=== PATIENT | male | born 1965 | race Hispanic/Latino ===

== ENCOUNTER 2018-08-07 04:48 | Observation (INO) | payer OTHER ==
[2018-08-07 05:23] LABS: #Eosinphils 0.1 thou/uL (0.0-0.7); #Lymphocytes 1.4 thou/uL (1.20-3.40); #Monocytes 0.5 thou/uL (0.11-0.59); #Neutrophils 6.8 thou/uL (1.40-6.50); %Basophils 0.5 % (0.0-1.0); %Eosinophils 0.7 % (0.0-10.0); %Lymphocytes 16.4 % (21.0-51.0); %Monocytes 5.9 % (0.0-10.0); %Neutrophils 76.6 % (42.0-75.0); Hemoglobin 17.3 g/dL (14.0-18.0); Mean Corpuscular HGB CONC 34.5 g/dL (32.0-36.0); Mean Corpuscular Hemoglobin 31.7 pg (27.0-31.0); Mean Corpuscular Volume 91.8 fL (78.0-98.0); Mean Platelet Volume 8.3 fL (7.4-10.4); Platelet Count 199 thou/uL (130-400); RBC Distribution Width 11.8 % (11.5-14.5); Red Blood Cell (RBC) Count 5.47 mill/uL (4.70-6.10); White Blood Cell (WBC) Count 8.8 thou/uL (4.8-10.8)
[2018-08-07 05:41] LABS: ALT (SGPT) 31 U/L (8-55); AST (SGOT) 21 U/L (5-34); Alkaline Phosphatase 114 U/L (40-150); Anion Gap 11 mmol/L (10-20); BUN (Urea Nitrogen) 11 mg/dL (8.4-25.7); Bilirubin, Total 0.5 mg/dL (0.2-1.2); Calc. Creatinine Clearance 0 mL/min (70-130); Calcium 9.1 mg/dL (7.8-10.44); Carbon Dioxide 23 mmol/L (22-29); Chloride 107 mmol/L (98-107); Estimated GFR-MDRD Greater than 90; Globulin 3.1 g/dL (2.4-3.5); Glucose 138 mg/dL (70-105); Potassium 4.2 mmol/L (3.5-5.1); Protein, Total 7.1 g/dL (6.0-8.3); Sodium 137 mmol/L (136-145)
--- NOTE | 2018-08-07 06:43 | PDOC.FPRHP ---
- History of Present Illness Chief Complaint: syncope History of Present Illness: Mr. Finn presents from alf for an episode of syncope He reports he was urinating this morning and upon finishing he became dizzy/SOB and passed out, the next thing he remembers is being on the floor with people standing around him. He denies any chest pain, palpitations, recent change in bowel movements, fever/chills, numbness/tingling, or focal weakness. When he had an DE in the past he reported chest pain and shortness of breath. He reports recently he has had to strain more to urinate. ED Course: ASA CBC, CMP, trop, CXR, CT brain - History PMHx: CAD, HTN, psoriasis PSHx: tympanic membrane graph, stent placement in 2016 FHx: DM Social: in alf - Review of Systems General: denies: fever/chills, weight/appetite/sleep changes Eyes: denies: eye pain, vision changes ENT: denies: nasal congestion, rhinorrhea Respiratory: reports: shortness of breath. denies: cough, congestion, exercise intolerance Cardiovascular: denies: chest pain (d), palpitation, edema Gastrointestinal: reports: nausea. denies: diarrhea, constipation Genitourinary: denies: incontinence, dysuria, polyuria Skin: denies: rashes Musculoskeletal: denies: pain, tenderness Neurological: reports: syncope. denies: numbness - Vital signs BP: 141/87 HR: 75 RR: 16 Tmax: 98.3 Pox: 98% on RA Wt: 88.45kg - Physical Exam Constitutional: NAD HEENT: EOMI, grossly normal vision, grossly normal hearing, MMM Neck: supple, trachea midline Chest: no-tender to palpation, no lesions Heart: RRR, normal S1/S2, no murmurs/rubs/gallops, pulses present, no edema Lungs: CTAB, no respiratory distress, good air movement Abdomen: soft, non-tender Musculoskeletal: normal structure, normal tone Neurological: no focal deficit, CN II-XII intact Skin: no rash/lesions, good turgor Heme/Lymphatic: no unusual bruising or bleeding Psychiatric: normal mood and affect FMR H&P: Results - Labs Result Diagrams: 08/07/18 05:06 08/07/18 05:06 Lab results: WBC 8.8 thou/uL (4.8-10.8) 08/07/18 05:06 Hgb 17.3 g/dL (14.0-18.0) 08/07/18 05:06 Hct 50.2 % (42.0-52.0) 08/07/18 05:06 MCV 91.8 fL (78.0-98.0) 08/07/18 05:06 Plt Count 199 thou/uL (130-400) 08/07/18 05:06 Neutrophils % 76.6 % (42.0-75.0) H 08/07/18 05:06 Sodium 137 mmol/L (136-145) 08/07/18 05:06 Potassium 4.2 mmol/L (3.5-5.1) 08/07/18 05:06 Chloride 107 mmol/L (98-107) 08/07/18 05:06 Carbon Dioxide 23 mmol/L (22-29) 08/07/18 05:06 BUN 11 mg/dL (8.4-25.7) 08/07/18 05:06 Creatinine 0.77 mg/dL (0.7-1.3) 08/07/18 05:06 Glucose 138 mg/dL (70-105) H 08/07/18 05:06 Calcium 9.1 mg/dL (7.8-10.44) 08/07/18 05:06 Total Bilirubin 0.5 mg/dL (0.2-1.2) 08/07/18 05:06 AST 21 U/L (5-34) 08/07/18 05:06 ALT 31 U/L (8-55) 08/07/18 05:06 Alkaline Phosphatase 114 U/L (40-150) 08/07/18 05:06 Serum Total Protein 7.1 g/dL (6.0-8.3) 08/07/18 05:06 Albumin 4.0 g/dL (3.5-5.0) 08/07/18 05:06 FMR H&P: A/P - Problem List (1) Micturition syncope Current Visit: Yes Status: Acute Code(s): R55 - SYNCOPE AND COLLAPSE (2) Coronary artery disease Current Visit: Yes Status: Acute Code(s): I25.10 - ATHSCL HEART DISEASE OF [place] CORONARY ARTERY W/O ANG PCTRS (3) HTN (hypertension) Current Visit: Yes Status: Acute Code(s): I10 - ESSENTIAL (PRIMARY) HYPERTENSION (4) Psoriasis Current Visit: Yes Status: Acute Code(s): L40.9 - PSORIASIS, UNSPECIFIED - Plan micturition syncope - most likely diagnosis based on hx, neg trops, no chest pain - orthostatics, echo ordered - monitor on telemetry, vitals q4hr CAD - stent placement in 2016 - continue ASA HTN - continue home meds Psoriasis - continue home meds code: full ppx: lovenox Disposition/LOS: observe on telemetry, possible DC later FMR H&P: Upper Level - Pertinent history Pt is a 53 y/o M with CAD s/p stent in 2016 presenting after syncopal episode and fall. Had just finished urinating. Associated SOB and LOC. Did have a laceration on his head from the fall. This has not occurred in the past. He states he feels well now and denies chest pain, palpitations, dysuria, straining to urinate, constipationor stool changes, fevers chills, vision problems. Medications: Metoprolol 25 bid Prednisone 10mg daily Atorvastatin 10mg Plavix 75 daily - Plan Date/Time: 08/07/18 3984 I, Jossue Watson, have evaluated this patient and agree with findings/plan as outlined by internet application developer resident. Pertinent changes/additions are listed here. 1. Syncope Possibly orthostatic vs arrhythmia vs vasovagal and unlikely ACS. Most likely micturition response. Neg troponins and EKG. Will monitor on Tele, no arrhythmias observed. Order ECHO and orthostatic v/s. Consider stress test, but will hold for now. Will also give IVF as pt was mildy dehydrated. 2. Head Trauma 2/2 fall. Does have repaired laceration and is of nonrmal mentation. Continue to monitor neurological and metal status. 3. CAD S/p stents in 2016 and on Plavix. Did describe SOB, however no chest pain and negative troponins and EKG suggest no acute process. Continue home medications 4. Psoriasis - Continue home prednisone dose of 10mg and triamcinolone. 5. HTN continue Metoprolol Attending Addendum - Attending Addendum Date/Time: 08/07/18 [id number] I personally evaluated the patient and discussed the management with the team. I agree with and repeated the History, Examination, Assessment and Plan documented above with any addition or exceptions noted below. The patient tells me he had shortness of breath and palpitations prior to his syncope. His exam is unremarkable. Good hemostasis at site of fredo. Plan for stress and TTE.
--- NOTE | 2018-08-07 07:53 | CT ---
FINAL REPORT HEAD CT WITHOUT CONTRAST: DATE: 08/07/2018. COMPARISON: None. HISTORY: Injury, trauma, pain. FINDINGS: I agree with the preliminary [facility] report. The imaged paranasal sinuses and mastoid air cells are well aerated. There is scalp swelling near the vertex posteriorly on the left with associated subcutaneo us gas consistent with scalp laceration. No associated fracture. No intracranial hemorrhage, midlin e shift, or mass effect. IMPRESSION: Scalp injury near the vertex on the left posteriorly. No associated fracture or intracranial hemorrh age. POS: [facility]
--- NOTE | 2018-08-07 08:33 | CT ---
PRELIMINARY REPORT/[facility]/EMERGENT[facility] AFTER-HOURS PROCEDURE CT Head Without Contrast EXAM DATE/TIME: 08/07/2018 5:17 AM CLINICAL HISTORY: 53 years old, male; Injury or trauma; Fall; Initial encounter; Blunt trauma (contusions or hematomas) and laceration; With loss of consciousness; Loss of consciousness for 30 minutes or less; Without re sidual foreign body; Forehead; Injury date: 08/06/18; Patient HX: Er4, no prev, S/P fall, m53 presents to ed via ems with C/O fall while in longterm. Per ems PT fell and hit back of head, +loc, and n ow has lac and has been complaining of nausea and vomiting. PT notes that he got up to go to the bath room this am, got dizzy, felt pressure in his chest, and then had a syncopal event. PT also notes stent placed in november 2015 TECHNIQUE: Axial computed tomography images of the head/brain without contrast. COMPARISON: No relevant prior studies available. FINDINGS: Brain: Normal. No hemorrhage. No significant white matter disease. No edema. Ventricles: Normal. No ventriculomegaly. Bones/joints: The underlying calvarium is intact. Sinuses: Normal as visualized. No acute sinusitis. Mastoid air cells: Normal as visualized. No mastoid effusion. Soft tissues: There is moderate soft tissue swelling over the left parietal bone. IMPRESSION: There is moderate soft tissue swelling over the left parietal bone but no evidence of acute intracran ial pathology. Thank you for allowing us to participate in the care of your patient. Dictated and Authenticated by: Erin Tucker MD 08/07/2018 5:49 AM Central Time ([place] & [place]) FINAL REPORT CERVICAL SPINE CT WITHOUT CONTRAST: DATE: 08/07/2018. COMPARISON: None. HISTORY: Trauma, injury, pain. FINDINGS: I agree with the preliminary [facility] report. There is polypoid mucosal thickening involving the alveolar recess of bilateral maxillary sinuses, le ft greater than right. C1 ring is intact. Occipital condyles, dense, and C1-2 articulation demonstrate no acute findings. There is moderate de generative change at the atlantoaxial interspace. Craniocervical and cervicothoracic junctions are i ntact. There is no anterolisthesis or retrolisthesis noted within the cervical spine. There is osseous fusion at the C5-6 intervertebral disk space with posterior osteophyte. There is os teophyte encroachment on the left neural foramen at C6-7. No prevertebral soft tissue swelling. No acute fracture or dislocation. Prominent degenerative endplate changes are present at C6-7 and C7-T1 . No acute fracture or evidence of dislocation. Posterior osteophyte at C5-6 and C6-7 causes central canal stenosis. Imaged lung apices unremarkable . IMPRESSION: Multilevel degenerative change. No displaced fracture or dislocation. POS: [facility]
--- NOTE | 2018-08-07 08:48 | RAD ---
SINGLE VIEW OF THE CHEST: COMPARISON: None. HISTORY: Passed out on toilet and hit head. Chest pain. FINDINGS: Single view of the chest shows a normal sized cardiomediastinal silhouette. There is no evidence of c onsolidation, mass, or pleural effusion. The bones are unremarkable. IMPRESSION: No evidence of acute cardiopulmonary disease. POS: [facility]
[2018-08-07 08:58] LABS: Troponin I Less than 0.010 ng/mL (< 0.028)
[2018-08-07 09:24] VITALS: BMI 29.0
[2018-08-07] MEDS ORDERED: ADENOSINE 60 MG/20 ML VIAL ONE (09:42)
[2018-08-07] MEDS ORDERED: Ondansetron PF 4 MG/2 ML Vial IVP PRN (09:51)
[2018-08-07] MEDS ORDERED: Ondansetron ODT 4 MG TAB SL PRN (09:51)
[2018-08-07] MEDS: Acetaminophen 325 MG TAB PO PRN ×2 (14:32→20:49)
[2018-08-07 14:40] LABS: Troponin I Less than 0.010 ng/mL (< 0.028)
--- NOTE | 2018-08-07 14:48 | NM ---
MYOCARDIAL PERFUSION STUDY: 08/07/2018 HISTORY: Shortness of breath. Syncope. RADIOPHARMACEUTICAL: Technetium 99m sestamibi 31 millicuries IV at stress. Technetium 99m sestamibi 9 millicuries IV at rest. MEDICATIONS: Adenosine 17.2 mL (51.5 mg) IV. FINDINGS: No significant reversible defect is seen between the stress and rest acquisitions. Quantitative anal ysis also shows no significant reversible defect. Gated images show normal ventricular wall motion a nd wall thickening. The calculated left ventricular ejection fraction is 65%. Incidental note is ma de of elevation of the transient ischemic dilatation ratio, which is 1.3, with upper limits of normal being 1.22. IMPRESSION: 1. Normal myocardial perfusion study without evidence of a reversible defect seen to suggest ischemi a. 2. Normal left ventricular ejection fraction of 65%. 3. Elevation of the transient ischemic dilatation ratio, which is 1.3. POS: [facility]
[2018-08-07] MEDS ORDERED: PREDNISONE 10 MG PO SCH (18:45)
[2018-08-07] MEDS ORDERED: predniSONE 5 MG TAB PO SCH (20:00)
[2018-08-07] MEDS: Metoprolol Tartrate 25 MG TAB PO SCH (20:49)
[2018-08-07] MEDS ORDERED: predniSONE 20 MG TAB PO SCH (23:00)
[2018-08-08] MEDS: predniSONE 5 MG TAB PO SCH ×2 (07:47→13:19)
--- NOTE | 2018-08-08 08:33 | PDOC.FM ---
- Subjective Subjective: No acute events overnight. Pt reportsfeeling of sob and similar pre-syncope feeling similar to original episode at around 3am. Tele monitor at that time showed sinus tachycardia. Denies cp, diaphoresis, NVDC, pre-syncope and syncopal episodes. - Objective MAR Reviewed: Yes Vital Signs & Weight: Vital Signs (12 hours) Temp Pulse Resp BP BP BP BP 08/08/18 07:36 97.5 F L 70 20 128/90 135/99 H 119/74 08/08/18 02:49 97.7 F 67 14 131/80 08/07/18 23:04 98.2 F 60 16 124/93 H Pulse Ox 08/08/18 07:36 95 08/08/18 02:49 94 L 08/07/18 23:04 95 Weight Weight 91.671 kg I&O: 08/07/18 08/08/18 08/09/18 06:59 06:59 06:59 Intake Total 775 Output Total 225 Balance 550 Result Diagrams: 08/07/18 05:06 08/07/18 05:06 <Dain Fischer - Last Filed: 08/08/18 08:30> - Objective Vital Signs & Weight: Vital Signs (12 hours) Temp Pulse Resp BP BP BP BP 08/08/18 07:36 97.5 F L 70 20 128/90 135/99 H 119/74 08/08/18 02:49 97.7 F 67 14 131/80 08/07/18 23:04 98.2 F 60 16 124/93 H Pulse Ox 08/08/18 07:36 95 08/08/18 02:49 94 L 08/07/18 23:04 95 Weight Weight 91.671 kg I&O: 08/07/18 08/08/18 08/09/18 06:59 06:59 06:59 Intake Total 775 Output Total 225 Balance 550 Result Diagrams: 08/07/18 05:06 08/07/18 05:06 <Huan Gilbert - Last Filed: 08/08/18 10:49> Phys Exam - Physical Examination Constitutional: NAD HEENT: PERRLA, moist MMs, sclera anicteric Neck: no nodes, no JVD, supple Respiratory: no wheezing, no rales, no rhonchi, clear to auscultation bilateral Cardiovascular: RRR, no significant murmur, no rub Gastrointestinal: soft, non-tender, no distention, positive bowel sounds Musculoskeletal: no edema, pulses present Neurological: non-focal, moves all 4 limbs Psychiatric: normal affect Skin: no rash, cap refill <2 seconds Deviation from normal: head laceration left occipital region <Dain Fischer - Last Filed: 08/08/18 08:30> Dx/Plan (1) Micturition syncope Code(s): R55 - SYNCOPE AND COLLAPSE Status: Acute (2) Coronary artery disease Code(s): I25.10 - ATHSCL HEART DISEASE OF [place] CORONARY ARTERY W/O ANG PCTRS Status: Acute (3) HTN (hypertension) Code(s): I10 - ESSENTIAL (PRIMARY) HYPERTENSION Status: Acute (4) Psoriasis Code(s): L40.9 - PSORIASIS, UNSPECIFIED Status: Acute - Plan Plan: micturition syncope - given no events on telemetry and negative stress, remains most arevalo dx - will await read on echo - stress negative - dc to [facility] today CAD - stent placement in 2016 - continue ASA HTN - continue home meds - cont to monitor, if persistently elevated may benefit from additionally bp med control Psoriasis - continue home meds Dispo: stable, will await echo results and DC to [facility] today. No events on telemetry overnight. <Dain Fischer - Last Filed: 08/08/18 08:30> (1) Micturition syncope Code(s): R55 - SYNCOPE AND COLLAPSE Status: Acute (2) Coronary artery disease Code(s): I25.10 - ATHSCL HEART DISEASE OF [place] CORONARY ARTERY W/O ANG PCTRS Status: Acute (3) HTN (hypertension) Code(s): I10 - ESSENTIAL (PRIMARY) HYPERTENSION Status: Acute (4) Psoriasis Code(s): L40.9 - PSORIASIS, UNSPECIFIED Status: Acute <Huan Gilbert - Last Filed: 08/08/18 10:49> Attending Addendum - Attending Addendum Date/Time: 08/08/18 1048 I personally evaluated the patient and discussed the management with Dr. Fischer. I agree with and repeated the History, Examination, Assessment and Plan documented above with any addition or exceptions noted below. In light of stress results will d/w cards and see if they would want some sort of rhythm monitoring. If not then plan for dc pending TTE results. Low suspicion of seizures or other etiologies. <Huan Gilbert - Last Filed: 08/08/18 10:49>
[2018-08-08] MEDS: Metoprolol Tartrate 25 MG TAB PO SCH (08:56)
[2018-08-08] MEDS ORDERED: Amlodipine 5 MG TAB PO SCH (09:00)
[2018-08-08] MEDS ORDERED: Triamcinolone 0.1% Cream 15 GM TUBE TOP PRN (09:00)
[2018-08-08] MEDS ORDERED: Atorvastatin Calcium 10 MG TAB PO SCH (09:00)
[2018-08-08] MEDS ORDERED: Clopidogrel Bisulfate 75 MG TAB PO SCH (09:00)
[2018-08-08 12:14] VITALS: BP 117/78; TEMP 98.1
[2018-08-08] MEDS ORDERED: predniSONE 20 MG TAB PO SCH (21:00)
[2018-08-09] MEDS ORDERED: predniSONE 5 MG TAB PO SCH (07:00)
[2018-08-10] MEDS ORDERED: predniSONE 5 MG TAB PO SCH (07:00)
--- NOTE | 2018-08-10 13:28 | EKG ---
Test Reason : CP Blood Pressure : / mmHG Vent. Rate : 069 BPM Atrial Rate : 069 BPM P-R Int : 158 ms QRS Dur : 106 ms QT Int : 414 ms P-R-T Axes : 057 048 034 degrees QTc Int : 443 ms Normal sinus rhythm Normal ECG Confirmed by DARIEN RUFF DO ([id number]), online content editor BERNADETTE DO ([id number]) on 08/10/2018 1:27:47 PM Referred By: Confirmed By:DARIEN RUFF DO
[2018-08-11] MEDS ORDERED: predniSONE 5 MG TAB PO SCH (07:00)
[2018-08-12] MEDS ORDERED: predniSONE 5 MG TAB PO SCH (07:00)
== END 2018-08-08 13:04 ==
LOC: EEVIPCON 04:48 → ERS 04:48 → 2SW 07:05
PROVIDERS: ADMIT Student in an Organized Health Care Education/Training Program; ATTEND Student in an Organized Health Care Education/Training Program
DX: R55 Syncope and collapse (principal); I25.10 Atherosclerotic heart disease of native coronary artery without angina pectoris; I10 Essential (primary) hypertension; L40.9 Psoriasis, unspecified; Z79.52 Long term (current) use of systemic steroids; Z79.02 Long term (current) use of antithrombotics/antiplatelets; Z79.899 Other long term (current) drug therapy; Z95.5 Presence of coronary angioplasty implant and graft
CPT/HCPCS: 12001; 36415; 70450; 71045; 72125; 78452; 80053; 84484; 85025; 85379; 93005; 93017; 93306; A9500; G0378; J0153; J7506